=== PATIENT | male | born 1985 | race Two or more races ===

== ENCOUNTER 2017-10-14 00:27 | Inpatient (IN) | payer SELFPAY ==
[2017-10-14] MEDS: IV NORMAL SALINE 1000ML BAG 1,000 ML IV ×4 (01:30→20:30)
[2017-10-14] MEDS: ACETAMINOPHEN 500 MG TABLET PO (01:30)
[2017-10-14 01:40] LABS: ADD MAN DIFF? NO
[2017-10-14 01:44] LABS: BILIRUBIN,URINE NEGATIVE (NEG); CLARITY,URINE CLEAR; COLOR,URINE YELLOW; GLUCOSE,URINE NEGATIVE (NEG); NITRITE,URINE NEGATIVE (NEG); PROTEIN,URINE NEGATIVE (NEG-TRACE)
[2017-10-14 01:46] LABS: BASO % 0 % (0-3); EOS % 0 % (0-3); HEMATOCRIT 39.4 % (39.0-53.0); LYMPH % 13 % (24-48); MEAN CORPUSCULAR HEMOGLOBIN 32 pg (25-35); MEAN CORPUSCULAR HGB CONC 36 g/dL (31-37); MEAN CORPUSCULAR VOLUME 91 fL (79-100); MONO % 14 % (0-9); NEUT # 5.4 x10^3uL (1.8-7.7); NEUT % 73 % (31-73); PLATELET COUNT 180 x10^3/uL (140-400); RED BLOOD COUNT 4.33 x10^6/uL (4.30-5.70); RED CELL DISTRIBUTION WIDTH 13.9 % (11.5-14.5); WHITE BLOOD COUNT 7.4 x10^3/uL (4.0-11.0)
[2017-10-14 01:51] LABS: BACTERIA,URINE 0 /HPF (0-FEW); RBC,URINE 0 /HPF (0-2); SQUAMOUS EPITHELIAL CELL,UR OCC /LPF; WBC,URINE 0 /HPF (0-4)
[2017-10-14 01:52] LABS: BARBITURATES NEG (NEG); BENZODIAZEPINES NEG (NEG); CANNABINOIDS NEG (NEG); COCAINE NEG (NEG); METHADONE NEG (NEG); OPIATES NEG (NEG); PHENCYCLIDINE NEG (NEG)
[2017-10-14 01:53] LABS: AMPHETAMINE/METHAMPHETAMINE NEG (NEG); ETHANOL, URINE NEG (NEG)
[2017-10-14 01:59] LABS: ANION GAP 7 (6-14); BLOOD UREA NITROGEN 10 mg/dL (8-26); BUN/CREATININE RATIO 11 (6-20); CALCIUM 8.4 mg/dL (8.5-10.1); CARBON DIOXIDE 27 mmol/L (21-32); CHLORIDE 102 mmol/L (98-107); CREATININE 0.9 mg/dL (0.7-1.3); GFR 97.2; GLUCOSE 118 mg/dL (70-99); POTASSIUM 3.9 mmol/L (3.5-5.1); SODIUM 136 mmol/L (136-145)
[2017-10-14 02:03] LABS: ETHANOL < 10 mg/dL (0-10)
[2017-10-14 02:06] LABS: ALBUMIN 3.6 g/dL (3.4-5.0); ALK PHOS 107 U/L (46-116); ALT (SGPT) 29 U/L (16-63); AST (SGOT) 18 U/L (15-37); CREATINE KINASE 132 U/L (39-308); TOTAL BILIRUBIN 0.7 mg/dL (0.2-1.0); TOTAL PROTEIN 7.1 g/dL (6.4-8.2)
[2017-10-14 02:11] LABS: LACTIC ACID 1.4 mmol/L (0.4-2.0)
[2017-10-14 02:55] LABS: INR 1.1 (0.8-1.1); PROTHROMBIN TIME PATIENT 13.4 SEC (11.7-14.0)
[2017-10-14] MEDS ORDERED: LIDOCAINE 2% 20 ML VIAL. (03:10)
[2017-10-14] MEDS: LIDOCAINE 2% 20 ML VIAL. IJ (03:17)
[2017-10-14] MEDS: VANCOMYCIN 1.75 GM in IV 1/2 NORMAL SALINE 500 ML IV (04:01)
[2017-10-14 04:09] LABS: CSF CLARITY CLEAR; CSF COLOR COLORLESS; CSF RBC COUNT 0; CSF TUBE # 4; CSF WBC COUNT 1
[2017-10-14 04:13] LABS: CSF GLUCOSE 71 mg/dL (37-70)
[2017-10-14] MEDS ORDERED: diphenhydrAMINE 50 MG/ML VIAL (04:43)
[2017-10-14] MEDS: diphenhydrAMINE 50 MG/ML VIAL IVP (05:00)
[2017-10-14] MEDS: VANCOMYCIN PER PHARMACY MC ×2 (05:59→19:12)
[2017-10-14] MEDS: LACTOBACILLUS RHAMNOSUS GG 1 CAPSULE. PO ×2 (08:34→22:05)
[2017-10-14] MEDS ORDERED: ONDANSETRON PF 4 MG/2 ML VIAL. IV (08:45)
[2017-10-14] MEDS ORDERED: IBUPROFEN 600 MG TABLET. PO (08:45)
[2017-10-14] MEDS ORDERED: cefTRIAXone SODIUM 2 GM in IV DEXTROSE 5% 100 ML IV (10:00)
[2017-10-14] MEDS: ACETAMINOPHEN 325 MG TABLET. PO ×2 (11:28→22:51)
[2017-10-14] MEDS: DOXYCYCLINE HYCLATE 100 MG TABLET PO ×2 (11:28→22:05)
[2017-10-14] MEDS: VANCOMYCIN 1 GM in IV DEXTROSE 5 %-0.2 % NACL 250 ML IV ×2 (12:56→22:05)
[2017-10-15 04:52] LABS: ADD MAN DIFF? NO
[2017-10-15 05:01] LABS: BASO % 0 % (0-3); EOS # 0.1 x10^3/uL (0.0-0.7); EOS % 2 % (0-3); HEMATOCRIT 37.5 % (39.0-53.0); HEMOGLOBIN 13.1 g/dL (13.0-17.5); LYMPH # 1.8 x10^3/uL (1.0-4.8); LYMPH % 25 % (24-48); MEAN CORPUSCULAR HEMOGLOBIN 32 pg (25-35); MEAN CORPUSCULAR HGB CONC 35 g/dL (31-37); MEAN CORPUSCULAR VOLUME 92 fL (79-100); MONO # 1.1 x10^3/uL (0.0-1.1); MONO % 15 % (0-9); NEUT # 4.3 x10^3uL (1.8-7.7); NEUT % 59 % (31-73); PLATELET COUNT 171 x10^3/uL (140-400); RED BLOOD COUNT 4.08 x10^6/uL (4.30-5.70); WHITE BLOOD COUNT 7.4 x10^3/uL (4.0-11.0)
[2017-10-15] MEDS: cefTRIAXone IV Push 2 GM VIAL. IVP (05:04)
[2017-10-15 05:31] LABS: ANION GAP 8 (6-14); BLOOD UREA NITROGEN 6 mg/dL (8-26); CALCIUM 8.5 mg/dL (8.5-10.1); CARBON DIOXIDE 26 mmol/L (21-32); CHLORIDE 107 mmol/L (98-107); CREATININE 0.8 mg/dL (0.7-1.3); GFR 111.3; GLUCOSE 98 mg/dL (70-99); POTASSIUM 4.4 mmol/L (3.5-5.1); SODIUM 141 mmol/L (136-145); VANC TR 13.1 mcg/mL (10.0-20.0)
[2017-10-15] MEDS: VANCOMYCIN PER PHARMACY MC (05:47)
[2017-10-15] MEDS: VANCOMYCIN 1 GM in IV DEXTROSE 5 %-0.2 % NACL 250 ML IV (06:27)
[2017-10-15] MEDS: LACTOBACILLUS RHAMNOSUS GG 1 CAPSULE. PO (09:05)
[2017-10-15] MEDS: DOXYCYCLINE HYCLATE 100 MG TABLET PO (09:05)
[2017-10-16] MEDS ORDERED: CEPHALEXIN 250 MG CAPSULE. PO (08:00)
== END 2017-10-15 12:05 | disposition home or self-care (01) | DRG 866 ==
LOC: ER 00:27 → 4 NORTH 04:15
DX: B34.9 Viral infection, unspecified (principal); R01.1 Cardiac murmur, unspecified; R50.9 Fever, unspecified; W19.XXXA Unspecified fall, initial encounter; Y93.89 Activity, other specified; Y92.89 Other specified places as the place of occurrence of the external cause; Y99.8 Other external cause status; R55 Syncope and collapse
CPT/HCPCS: 36415; 62270; 70450; 70486; 71045; 80048; 80053; 80202; 80307; 81001; 82550; 82945; 83605; 84145; 84157; 85025; 85610; 87040; 87071; 87075; 87205; 89051; 93306; 96361; 96365; 96367; 99285-25; G0480; J0696; J1200; J3370; J7030